=== PATIENT | male | born 1985 | race African-American/Black ===

== ENCOUNTER 2016-07-31 02:11 | Emergency (ER) | payer SELFPAY ==
[~2016-07-31] VITALS: Ht 172.7 cm; Wt 69.0 kg
[2016-07-31 02:15] VITALS: BP 170/101; PULSE 111; RESP 16; TEMP 98.1; O2SAT 97
--- NOTE | 2016-07-31 02:56 | PD ---
HPI Chief Complaint: Injury Time Seen by Provider: 02:55 Travel History International Travel<30 days: No Contact w/Intl Traveler<30days: No Traveled to known affect area: No History of Present Illness HPI Patient comes in for evaluation of left knee pain that occurred shortly prior to arrival. [place] when he felt his left knee pop on him. Patient feels it may have popped out of place. Patient denies doing anything for this prior to coming to the emergency department. Patient denies any known direct trauma. Denies any numbness or tingling. Pain is worse with movement and improves with not moving. Denies any radiation of the pain. PFSH Past Medical History GERD: Yes Immunizations Current: Yes Tetanus Vaccination: Unknown Influenza Vaccination: No Social History Alcohol Use: Yes (socially) Tobacco Use: Yes Substance Use: No Allergies-Medications (Allergen,Severity, Reaction): Coded Allergies: No Known Allergies (Unverified , 07/31/16) Reported Meds & Prescriptions Reported Meds & Active Scripts Active Naprosyn (Naproxen) 500 Mg Tab 500 Mg PO Q12HR PRN Review of Systems Except as stated in HPI: all other systems reviewed are Neg Physical Exam Narrative GENERAL: Well-developed, well nourished, in no acute distress, and non-ill appearing. SKIN: Warm and dry. HEAD: Atraumatic. Normocephalic. EYES: Pupils equal and round. EOMI. No scleral icterus. No injection or drainage. ENT: No nasal bleeding or discharge. Mucous membranes pink and moist. NECK: Trachea midline. Supple. No nuclear rigidity. CARDIOVASCULAR: Dorsal pulses 2+ intact bilaterally. Capillary refill less than 2 seconds. RESPIRATORY: No accessory muscle use. No respiratory distress. MUSCULOSKELETAL: No obvious deformities. No clubbing. No cyanosis. No edema. Decreased range of motion left knee secondary to pain. Knee: Negative patellar apprehension, varus and valgus maneuvers, anterior draw test, and Liana test. Pulses equal BL distal to injury. Capillary refill less than 2 seconds distal to injury and equal BL. FROM distal to injury and equal BL. Strength distal to injury equal BL. NV intact distal to injury. Dorsal pulses equal BL. NEUROLOGICAL: Awake and alert. No obvious cranial nerve deficits. Motor grossly within normal limits. Normal speech. PSYCHIATRIC: Appropriate mood and affect; insight and judgment normal. Data Data Last Documented VS Vital Signs Date Time Temp Pulse Resp B/P Pulse Ox O2 Delivery O2 Flow Rate FiO2 07/31/16 03:08 91 16 147/82 97 Room Air 07/31/16 02:15 98.1 Orders Knee, Complete (4vws) (07/31/16 ) Ice/Cold Pack (07/31/16 02:53) Splint Or Brace Apply/Monitor (07/31/16 02:54) Famotidine (Pepcid) (07/31/16 03:30) [facility] Medical Decision Making Medical Screen Exam Complete: Yes Emergency Medical Condition: Yes Differential Diagnosis Fracture, sprain, contusion, other Narrative Course There is no clinical evidence to suspect bony injury by exam. Radiographic examination revealed no fracture seen at this time. No obvious ligamental injury or obvious internal derangement is noted at this time. The anterior, posterior, lateral and medial collateral ligaments are intact and symmetrical. The distal extremity appears neurovascularly intact, without evidence of neurovascular injury nor compartment syndrome. Tendon exam also was intact. The effected limb was immobilized. The patient was discharged on pain medication along with sprain and splint care instructions and given warnings for vascular compromise. The patient is to follow up with Orthopedics. The patient agrees with plan. Patient in no obvious distress upon re-evaluation. All pertinent Radiology result(s) discussed with patient. Patient is requesting something for his chronic GERD prior to discharge and Pepcid was ordered. Patient was asked if they wanted to speak to my attending, which the patient did not wish to do at this time. Any questions/concerns in reference to patient diagnosis/condition discussed and clarified prior to patient's discharge. Reinforced sheer importance of close follow up with patient's primary physician or primary care clinic. Instructed patient to return to ED immediately, if symptoms return/ worsen. Pt showed understanding of above instructions. Further instructions and recommendations were detailed in discharge paperwork. Pt ambulated without difficulty out of ED at discharge with crutches. Diagnosis Primary Impression: Left knee sprain Qualified Code: S83.92XA - Sprain of left knee, unspecified ligament, initial encounter Referrals: Dariusz Colon MD Patient Instructions: Crutch Instructions (ED), General Instructions, Knee Immobilizer (ED), Knee Sprain (ED) Additional Instructions: Follow-up with your primary care physician and/or orthopedics in 2-3 days for evaluation. Take all medication as prescribed. Apply ice to affected area 20 minutes per hour as needed for pain. Return to the emergency department if symptoms get worse. Med/Other Pt SpecificInfo: Prescription(s) given Scripts Naproxen (Naprosyn)500 Mg [id number] Mg PO Q12HR PRN (PAIN SCALE 1 TO 10) #20 TAB Ref 0 Prov:Shen Le MD 07/31/16 Disposition: 01 DISCHARGE HOME Condition: Stable Jose Núñez Jul 31, 2016 02:56
--- NOTE | 2016-07-31 03:04 | RADRPT ---
EXAM DATE/TIME: 07/31/2016 02:29 [facility] COMPARISON: No previous studies available for comparison. INDICATIONS : Left knee pain. MEDICAL HISTORY : None. SURGICAL HISTORY : None. ENCOUNTER: Initial ACUITY: 1 day PAIN SCORE: Non-responsive. LOCATION: Left knee. FINDINGS: Four view examination of the left knee demonstrates no evidence of fracture or dislocation. Bony min eralization is normal. The articular surfaces are intact. The suprapatellar soft tissues have a nor mal configuration. CONCLUSION: Unremarkable examination of the left knee. Phi Burgos MD on July 31, 2016 at 3:02 Board Certified Radiologist. This report was verified electronically.
[2016-07-31 03:08] VITALS: BP 147/82; PULSE 91; RESP 16; O2SAT 97
[2016-07-31] MEDS ORDERED: NAPR500 PO (03:23)
[2016-07-31] MEDS ORDERED: FAMOTIDINE 20 MG TAB PO ONE (03:30)
== END 2016-07-31 03:36 | disposition home or self-care (01) ==
LOC: NEPC 02:11
DX: Z72.0 Tobacco use (principal); S83.92XA Sprain of unspecified site of left knee, initial encounter; X58.XXXA Exposure to other specified factors, initial encounter; Y93.9 Activity, unspecified; Y92.9 Unspecified place or not applicable; Y99.9 Unspecified external cause status
CPT/HCPCS: 73564; 99283; E0113; L1830